=== PATIENT | female | born 1945 | race Caucasian/White ===

== ENCOUNTER 2016-11-13 09:49 | Emergency (ER) | payer OTHER, BC ==
[2016-11-13 09:54] VITALS: O2SAT 96
[2016-11-13] MEDS ORDERED: IBUPROFEN 200 MG TAB PO ONE (11:08)
[2016-11-13] MEDS ORDERED: LETS SOLN TOPICAL 1 EA SYR TP ONE ×2 (11:08)
--- NOTE | 2016-11-13 11:13 | EDPHY ---
H & P Smoking Status: Former smoker Time Seen by Provider: 11/13/16 11:09 HPI/ROS: HPI: 71-year-old female presents to emergency department with chief concern bilateral hand injuries. She tripped and fell in the parking lot 1 are ago. She landed on her hands. She denies any dizziness, syncope, shortness of breath or chest pain prior to fall. Purely a mechanical fall. Denies other injury time of incident including striking her head, neck or back pain. Reports mild right shoulder discomfort. Reports skin tears on her hands bilaterally. Denies weakness, numbness, or tingling of her extremities. Up-to-date with tetanus. 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 General: Well developed, well nourished, in no acute distress. Head: Normalocephalic. Atraumatic. Face: Atraumatic. EENT: PERRLA. EOMI. No nystagmus. TMs intact bilaterally with normal landmarks. No rhinnorhea, nasal passages clear. Oropharynx without trauma or malocclusion. Neck: Supple, nontender. No midline tenderness. No tenderness with range of motion. Chest: Nontender, atraumatic. Respiratory: Breathing unlabored. Breath sounds equal bilaterally and clear to auscultation. No adventitious sounds. CV: Chest nontender, atraumatic. Heart rate regular. No murmur, distal pulses 2+ bilaterally. Brisk cap refill all extremities. GI: Abdomen soft, nontender. Bowel sounds normoactive and positive x4 quadrants. : No CVA tenderness. Back: No midline thoracic or lumbar tenderness Neuro: Alert. Oriented x 3. Speech clear. Nonfocal cranial nerves throughout. Sensation intact all extremities. Normal motor. Strength equal in 5 + all extremities. Skin: Skin warm, dry, intact. Atraumatic. Extremities: Full range of motion to her upper and lower extremities without joint discomfort, deformity, swelling, ecchymosis. Left hand with a 4 cm skin tear that is linear across the palmar surface of the proximal hand. Skin tear on the palmar surface of the right proximal hand ulnar aspect. Hands bilaterally without ecchymosis or swelling. Full range of motion hand and all fingers bilaterally. Opposition intact bilaterally. (Adelina Allen) Constitutional: Initial Vital Signs Temperature (C) 36.6 C 11/13/16 09:50 Heart Rate 76 11/13/16 09:50 Respiratory Rate 18 11/13/16 09:50 Blood Pressure 176/84 H 11/13/16 09:50 O2 Sat (%) 96 11/13/16 09:50 O2 Delivery Mode Room Air Allergies/Adverse Reactions: Penicillins Allergy (Severe, Verified 09/14/10 08:58) Hives Sulfa (Sulfonamide Antibiotics) Allergy (Severe, Verified 09/14/10 08:59) Hives Home Medications: Medication Instructions Recorded Aspirin 11/13/16 Bystolic 11/13/16 Hydrocodone/APAP 5/325 [[place] 1 tab PO Q4H PRN #4 tab 11/13/16 5/325 (*)] Norvasc 11/13/16 Medical Decision Making ED Course/Re-evaluation: Let gel applied to skin tear and abrasion. Wound care per protocol by manufacturing plant technician. Left hand Steri-Strips. Right hand dressing applied. Teaching around Skin Care and infection given. She is up-to-date with tetanus. X-ray of the left hand shows in (Adelina Allen) Differential Diagnosis: Skin tear, abrasion, fracture, contusion (Adelina Allen) - Data Points Medications Given: Discontinued Medications Acetaminophen/Hydrocodone Bitart ([place] 5/325) 1 tab PO EDNOW ONE Stop: 11/13/16 11:55 Last Admin: 11/13/16 11:59 Dose: 1 tab Ibuprofen (Motrin) 600 mg PO EDNOW ONE Stop: 11/13/16 11:09 Last Admin: 11/13/16 11:27 Dose: 600 mg Tetracaine/Epinephrine/Lidocaine (Lets Soln Topical) 1 ea TP EDNOW ONE Stop: 11/13/16 11:09 Last Admin: 11/13/16 11:28 Dose: 1 ea Departure - Departure Disposition: Home, Routine, Self-Care Clinical Impression: Mechanical fall, Skin tear, Abrasion Condition: Good Instructions: Skin Tear (ED), Abrasion (ED), Acute Wound Care (ED) Additional Instructions: Plan: You may use 600 mg of ibuprofen every 6 hours for fever, inflammation, or pain. Always take ibuprofen with food and stay well hydrated while taking. Do not exceed the maximum allowable dose in a 24 hour period which is 2400 mg. Okay to use for 3 or 4 days only. May use 1 [place] every 4 hours for severe pain--Never drink or drive while taking this medication. This medication impairs decision making capacity so do not work or sign important documents while taking. This medication its constipating so drink plenty of fluids and consider an [id number] stool softener such as docusate sodium (Colace) while taking this medication. This medication has addictive properties. You should use the least amount for the shortest amount of time. [facility] do not refill narcotic pain medication prescriptions. This is a hospital policy. You will need to follow up as indicated for recheck for further narcotic refills. Follow up with your primary care provider in the next 1-2 days for recheck without fail--When you call to schedule appointment, please let the office know you are an "ER follow up" appointment" Wound care-warm, soapy water to areas and generous amount of antibiotic ointment. Follow up promptly should symptoms of infection develop include redness, swelling, discharge, fever Referrals: Kamini Anrdew MD [Primary Care Provider] - As per Instructions Prescriptions: Hydrocodone/APAP 5/325 [[place] 5/325 (*)] 1 tab PO Q4H PRN #4 tab PRN Reason: severe pain
[2016-11-13] MEDS ORDERED: HYDROCODONE/APAP 5/325 TAB ONE (11:54)
[2016-11-13] MEDS ORDERED: HYDROCODONE/APAP 5/325 TAB PO ONE (11:54)
[2016-11-13 12:19] VITALS: BP 168/80; PULSE 72; RESP 16; TEMP 97.3
--- NOTE | 2016-11-13 13:56 | DX ---
Left Hand, Three Views History: Fall today, laceration at base of metacarpals Findings: There is an indeterminate age, transverse fracture involving the proximal metaphysis of the proximal phalanx of the thumb with radial angulation by approximately 45 degrees and impaction of th e radial aspect of the proximal phalanx into it's base. 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 There is bony fragmentatio n adjacent to the radial aspect of that joint. There is soft tissue calcification or bony fragmentati on seen along the palmar and dorsal aspect of the carpus. 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 No soft tissue gas or radiopaque foreign material is identified. There is mild ulna r deviation of the second third and fourth PIP joints. There is no active erosive disease or periarti cular demineralization. Impression: 1. Indeterminant age, angulated and impacted fracture of the proximal phalanx of the thum b. Please see above. If there are any old outside x-rays, we would be happy to review them to assess for interval change. Results discussed with Adelina Allen at 1:50 p.m.
== END 2016-11-13 12:31 | disposition home or self-care (01) ==
DX: S60.512A Abrasion of left hand, initial encounter (principal); S61.412A Laceration without foreign body of left hand, initial encounter; J44.9 Chronic obstructive pulmonary disease, unspecified; Z87.891 Personal history of nicotine dependence; Z79.82 Long term (current) use of aspirin; Z85.3 Personal history of malignant neoplasm of breast; W01.0XXA Fall on same level from slipping, tripping and stumbling without subsequent striking against object, initial encounter; Y92.481 Parking lot as the place of occurrence of the external cause

== ENCOUNTER → 2016-12-13 | Outpatient (CLI) | payer OTHER, BC | LOC: FIMAGING 12:03 | PROVIDERS: ATTEND Neurological Surgery | DX: M43.16 Spondylolisthesis, lumbar region (principal); M51.36 Other intervertebral disc degeneration, lumbar region ==

== ENCOUNTER → 2016-12-23 | Outpatient (CLI) | payer OTHER, BC | LOC: BMCIMAGING 11:05 | PROVIDERS: ATTEND Internal Medicine | DX: I71.4 Abdominal aortic aneurysm, without rupture (principal) ==

== ENCOUNTER → 2017-01-13 | Outpatient (CLI) | payer OTHER, BC | LOC: BMCIMAGING 10:57 | DX: Z12.31 Encounter for screening mammogram for malignant neoplasm of breast (principal); Z85.3 Personal history of malignant neoplasm of breast | CPT/HCPCS: G0202 ==

== ENCOUNTER → 2017-03-18 | Outpatient (CLI) | payer OTHER, BC | LOC: FIMAGING 10:16 | PROVIDERS: ATTEND Internal Medicine | DX: Z13.820 Encounter for screening for osteoporosis (principal); M85.80 Other specified disorders of bone density and structure, unspecified site; I65.23 Occlusion and stenosis of bilateral carotid arteries; Z78.0 Asymptomatic menopausal state; I77.1 Stricture of artery; I73.9 Peripheral vascular disease, unspecified; Z79.899 Other long term (current) drug therapy ==

== ENCOUNTER → 2018-02-10 | Outpatient (CLI) | payer OTHER, BC | LOC: BMCIMAGING 09:02 | PROVIDERS: ATTEND Internal Medicine | DX: Z12.31 Encounter for screening mammogram for malignant neoplasm of breast (principal); Z85.3 Personal history of malignant neoplasm of breast ==

== ENCOUNTER → 2018-02-11 | Outpatient (CLI) | payer OTHER, BC | LOC: BHLMT 10:45 | PROVIDERS: ATTEND Internal Medicine Cardiovascular Disease | DX: I73.9 Peripheral vascular disease, unspecified (principal) | CPT/HCPCS: 76775-PO; 93880-PO ==

== ENCOUNTER → 2018-06-22 | Outpatient (CLI) | payer OTHER, BC | LOC: FIMAGING 10:57 | PROVIDERS: ATTEND Internal Medicine | DX: K86.2 Cyst of pancreas (principal); I71.4 Abdominal aortic aneurysm, without rupture ==

== ENCOUNTER → 2018-06-30 | Outpatient (CLI) | payer OTHER, BC ==
[~2018-06-30] MED LIST: IOPAMIDOL (ISOVUE-300) 100 ML BTL ONE
== END ==
LOC: FIMAGING 10:37
PROVIDERS: ATTEND Internal Medicine
DX: R63.4 Abnormal weight loss (principal); R94.5 Abnormal results of liver function studies; K63.9 Disease of intestine, unspecified; I71.4 Abdominal aortic aneurysm, without rupture; K86.2 Cyst of pancreas; Z95.5 Presence of coronary angioplasty implant and graft
CPT/HCPCS: 74177; Q9967

== ENCOUNTER → 2018-07-04 | Outpatient (CLI) | payer OTHER, BC | LOC: FIMAGING 08:42 | PROVIDERS: ATTEND Neurological Surgery | DX: M51.34 Other intervertebral disc degeneration, thoracic region (principal); M81.0 Age-related osteoporosis without current pathological fracture; M51.36 Other intervertebral disc degeneration, lumbar region; M43.16 Spondylolisthesis, lumbar region; M48.061 Spinal stenosis, lumbar region without neurogenic claudication; I71.4 Abdominal aortic aneurysm, without rupture ==

== ENCOUNTER → 2018-07-08 | Outpatient (CLI) | payer OTHER, BC | LOC: BMCIMAGING 10:20 | PROVIDERS: ATTEND Neurological Surgery | DX: Z13.820 Encounter for screening for osteoporosis (principal); M81.0 Age-related osteoporosis without current pathological fracture; M41.86 Other forms of scoliosis, lumbar region; M51.36 Other intervertebral disc degeneration, lumbar region; I71.4 Abdominal aortic aneurysm, without rupture; Z78.0 Asymptomatic menopausal state; Z85.3 Personal history of malignant neoplasm of breast ==

== ENCOUNTER → 2019-02-12 | Outpatient (CLI) | payer OTHER, BC | LOC: BMCIMAGING 13:18 | PROVIDERS: ATTEND Internal Medicine | DX: Z12.31 Encounter for screening mammogram for malignant neoplasm of breast (principal); Z80.3 Family history of malignant neoplasm of breast ==

== ENCOUNTER → 2019-03-30 | Outpatient (CLI) | payer OTHER, BC | LOC: BMCIMAGING 07:58 ==